=== PATIENT | female | born 1980 | race Caucasian/White ===

== ENCOUNTER 2019-07-01 21:49 | Emergency (ER) | payer SELFPAY ==
[~2019-07-01] VITALS: Ht 154.9 cm; Wt 85.0 kg
[~2019-07-01 21:49] MED LIST: NAPR-985 PO
[2019-07-01 21:51] VITALS: Ht 154.9 cm; Wt 85.0 kg
[2019-07-01] MEDS ORDERED: SOD CHLORIDE 0.9% 1,000 ML IV STA (22:19)
[2019-07-01] MEDS ORDERED: KETOROLAC 30 MG INJ IV STA (22:19)
[2019-07-01] MEDS ORDERED: METOCLOPRAMIDE 10 MG INJ IV STA (22:19)
[2019-07-01] MEDS ORDERED: DEXAMETHASONE 10 MG/ML 1 ML INJ IV ONE (22:30)
[2019-07-01 23:35] VITALS: BP 100/72; PULSE 87; RESP 15
--- NOTE | 2019-07-01 23:41 | ERD ---
ER Documentation Chief Complaint Chief Complaint DAILEY AND NECK STIFFNESS X 1 WEEK. HPI 39-year-old female presenting with 2 weeks of a persistent posterior headache that is throbbing and pressure-like. The pain was gradual in onset and has progressively worsened. Today she felt some sensation of "fluid" in her neck. Denies any associated fever, chills, neck stiffness, dizziness, focal weakness or numbness in her extremities. No problems with balance or walking. No recent head injury. She does have remote history of concussion. no recent illnesses. Tylenol and ibuprofen have been helping intermittently. ROS All systems reviewed and are negative except as per history of present illness. Medications Home Meds Active Scripts Naproxen* (Naprosyn*) 500 Mg Tablet, 500 MG PO BID, #30 TAB Prov:NINOSKA ARIAS MD 07/01/19 Allergies Allergies: Coded Allergies: No Known Allergy (Unverified , 07/01/19) PMhx/Soc Medical and Surgical Hx: pt denies Medical Hx History of Surgery: Yes () Hx Alcohol Use: No Hx Substance Use: No Hx Tobacco Use: No Smoking Status: Never smoker FmHx Family History: No diabetes Physical Exam Vitals Vital Signs Date Temp Pulse Resp B/P (MAP) Pulse Ox O2 O2 Flow FiO2 Time Delivery Rate 07/01/19 98.0 87 15 100/72 100 Room Air 23:35 (81) 07/01/19 75 15 109/68 100 Room Air 23:00 (82) 07/01/19 74 18 120/77 97 Room Air 22:30 (91) 07/01/19 99.1 87 20 197/113 99 21:51 (141) Physical Exam Const: No acute distress Head: Atraumatic Eyes: Normal Conjunctiva, PERRLA, EOMI, no nystagmus ENT: Normal External Ears, Nose and Mouth. Neck: Full range of motion. No meningismus. Resp: Clear to auscultation bilaterally Cardio: Regular rate and rhythm, no murmurs Abd: Soft, non tender, non distended. Normal bowel sounds Skin: No petechiae or rashes Back: No midline or flank tenderness Ext: No cyanosis, or edema Neur: Awake and alert, oriented, normal speech, cranial nerves intact, strength and sensations intact in all 4 extremities. Normal gait and balance Psych: Normal Mood and Affect Result Diagram: 07/01/19 2213 07/01/19 2213 Results 24 hrs Laboratory Tests Test 07/01/19 22:13 07/01/19 22:23 White Blood Count 12.7 10^3/ul Red Blood Count 4.31 10^6/ul Hemoglobin 12.7 g/dl Hematocrit 38.4 % Mean Corpuscular Volume 89.1 fl Mean Corpuscular Hemoglobin 29.5 pg Mean Corpuscular Hemoglobin Concent 33.1 g/dl Red Cell Distribution Width 12.5 % Platelet Count 390 10^3/UL Mean Platelet Volume 9.4 fl Immature Granulocytes % 0.200 % Neutrophils % 58.5 % Lymphocytes % 32.6 % Monocytes % 7.0 % Eosinophils % 1.5 % Basophils % 0.2 % Nucleated Red Blood Cells % 0.0 /100WBC Immature Granulocytes # 0.030 10^3/ul Neutrophils # 7.4 10^3/ul Lymphocytes # 4.1 10^3/ul Monocytes # 0.9 10^3/ul Eosinophils # 0.2 10^3/ul Basophils # 0.0 10^3/ul Nucleated Red Blood Cells # 0.0 10^3/ul Sodium Level 137 mmol/L Potassium Level 3.5 mmol/L Chloride Level 101 mmol/L Carbon Dioxide Level 31 mmol/L Anion Gap 5 Blood Urea Nitrogen 8 mg/dl Creatinine 0.63 mg/dl Est Glomerular Filtrat Rate mL/min > 60 mL/min Glucose Level 111 mg/dl Calcium Level 9.4 mg/dl POC Beta HCG, Qualitative NEGATIVE Current Medications Medications Dose Sig/Mahad Start Time Status Last (Trade) Ordered Route PRN Stop Time Admin Dose Reason Admin Sodium 1,000 ml @ Q1H STAT 07/01/19 DC 07/01/19 Chloride 1,000 mls/hr IV 22:19 07/01/19 22:27 23:18 10 mg ONCE STAT 07/01/19 DC 07/01/19 Metoclopramid IV 22:19 07/01/19 22:27 e HCl 22:21 (Reglan) Ketorolac 30 mg ONCE STAT 07/01/19 DC 07/01/19 Tromethamine IV 22:19 07/01/19 22:27 (Toradol) 22:21 10 mg ONCE ONCE 07/01/19 DC 07/01/19 Dexamethasone IV 22:30 07/01/19 22:27 (Decadron) 22:31 Procedures/MDM EMERGENT LABS AND DIAGNOSTIC STUDIES: Lab Results above were reviewed and interpreted by me. CBC: Mild leukocytosis, doubt infection. No anemia BMP: No e/o clinically significant electrolyte abnormality severe acidosis, alkalosis, renal failure, diabetic ketoacidosis Initial Nursing notes reviewed. Previous Medical Records requested via the Electronic Health Record. EMERGENCY DEPARTMENT COURSE / MEDICAL DECISION MAKING: Patient's neurologic symptoms have stabilized while they have been evaluated in the department and are appropriate for outpatient work up. No e/o meningitis, intracranial bleed, seizure, stroke. Patient's blood pressure was elevated (>120/80) but appears stable without evidence of hypertensive emergency or urgency. The patient was counseled about the risks of hypertension and urged to pursue outpatient monitoring and therapy within a week with their primary care physician. Departure Diagnosis: Primary Impression: Headache Headache type: unspecified Headache chronicity pattern: acute headache Intractability: not intractable Qualified Codes: R51 - Headache Condition: Stable Patient Instructions: Self-Care for Headaches Referrals: NO PRIMARY,CARE PHYSICIAN (PCP) Additional Instructions: Si mcdonough dolor no mejora en los prximos chisholm, liyah deb carole con mcdonough mdico de atencin primaria, ya que es posible que necesite ms estudios de diagnstico. NINOSKA ARIAS MD Jul 01, 2019 23:41
== END 2019-07-01 23:35 | disposition home or self-care (01) ==
LOC: E/R 21:49
DX: R51 Headache (principal)
CPT/HCPCS: 36415; 80048; 81025; 85025; 96374; 96375; 99284; J1100; J1885; J2765; J7030